=== PATIENT | female | born 1985 | race African-American/Black ===

== ENCOUNTER → 2017-03-07 | Outpatient (CLI) | payer MEDICAID ==
[2017-03-07 11:47] LABS: HEMATOCRIT 38.9 % (36.0-47.0); HEMOGLOBIN 13.3 g/dL (12.0-15.5); MEAN CORPUSCULAR HEMOGLOBIN 29.5 pg (27.0-33.4); MEAN CORPUSCULAR HGB CONC 34.2 g/dL (32.0-36.0); MEAN CORPUSCULAR VOLUME 86 fl (80-97); RED BLOOD COUNT 4.51 10^6/uL (3.72-5.28); RED CELL DISTRIBUTION WIDTH 14.4 % (11.5-14.0); WHITE BLOOD COUNT 5.7 10^3/uL (4.0-10.5)
[2017-03-07 12:23] LABS: ALANINE AMINOTRANSFERASE 31 U/L (9-52); ALBUMIN 4.5 g/dL (3.5-5.0); ALKALINE PHOSPHATASE 70 U/L (38-126); ANION GAP 9 (5-19); ASPARTATE AMINO TRANSFERASE 19 U/L (14-36); BILIRUBIN,DIRECT 0.4 mg/dL (0.0-0.4); BILIRUBIN,TOTAL 0.6 mg/dL (0.2-1.3); BLOOD UREA NITROGEN 12 mg/dL (7-20); CALCIUM 9.6 mg/dL (8.4-10.2); CARBON DIOXIDE 31 mmol/L (22-30); CHLORIDE 100 mmol/L (98-107); CHOLESTEROL 192.78 mg/dL (0-200); CREATININE RESULT 0.69 mg/dL (0.52-1.25); Direct HDL 60 mg/dL (>40); GLUCOSE 89 mg/dL (75-110); POTASSIUM 4.8 mmol/L (3.6-5.0); TOTAL PROTEIN 7.5 g/dL (6.3-8.2); TRIGLYCERIDES 63 mg/dL (<150)
[2017-03-07 12:33] LABS: DIRECT LDL 122 mg/dL (<100)
[2017-03-07 12:53] LABS: THYROID STIMULATING HORMONE 1.13 uIU/mL (0.47-4.68)
[2017-03-08 10:55] LABS: ESTRADIOL 49.5 pg/mL (.); FOLLICLE STIMULATING HORMONE 7.7 mIU/mL (.)
[2017-03-08 14:13] LABS: TESTOSTERONE FREE (DIRECT) 4.9 pg/mL (0.0-4.2)
== END ==
LOC: OD 10:12
PROVIDERS: ATTEND Physician Assistant
DX: K59.00 Constipation, unspecified (principal); L70.0 Acne vulgaris; R68.89 Other general symptoms and signs; Z11.3 Encounter for screening for infections with a predominantly sexual mode of transmission
CPT/HCPCS: 36415; 80053; 80061; 82670; 83001; 83002; 83036; 84402; 84403; 84439; 84443; 85027

== ENCOUNTER 2017-04-04 04:13 | Emergency (ER) | payer MEDICAID ==
[2017-04-04 04:28] VITALS: BP 124/73
--- NOTE | 2017-04-04 04:39 | ER Document Report ---
ED General - General Chief Complaint: Back Pain Stated Complaint: BACK PAIN Time Seen by Provider: 04/04/17 04:15 TRAVEL OUTSIDE OF THE [place] IN LAST 30 DAYS: No - HPI Patient complains to provider of: Right lower back pain Notes: Patient coming in for evaluation of right lower back pain ongoing for the last 3 days patient denies any strenuous activity patient states off to the right side from the midline of the back patient states she has some mild swelling at the site denies any treatment at home denies taking Tylenol Motrin using ice packs and massage therapy or warm packs. Denies any bowel bladder incontinence - Related Data Allergies/Adverse Reactions: No Known Allergies Allergy (Verified 04/04/17 04:15) Past Medical History - Social History Smoking Status: Unknown if Ever Smoked Family History: Reviewed & Not Pertinent Patient has suicidal ideation: No Patient has homicidal ideation: No Renal/ Medical History: Denies: Hx Peritoneal Dialysis Review of Systems - Review of Systems Constitutional: No symptoms reported EENT: No symptoms reported Cardiovascular: No symptoms reported Respiratory: No symptoms reported Gastrointestinal: No symptoms reported Genitourinary: No symptoms reported Female Genitourinary: No symptoms reported Musculoskeletal: Back pain Skin: No symptoms reported Hematologic/Lymphatic: No symptoms reported Neurological/Psychological: No symptoms reported Physical Exam - Vital signs Vitals: Temp Pulse Resp BP Pulse Ox 97.9 F 81 20 124/73 97 04/04/17 04:22 04/04/17 04:22 04/04/17 04:22 04/04/17 04:22 04/04/17 04:22 Interpretation: Normal - General General appearance: Appears well, Alert - HEENT Head: Normocephalic, Atraumatic Eyes: Normal Pupils: PERRL - Respiratory Respiratory status: No respiratory distress Chest status: Nontender Breath sounds: Normal Chest palpation: Normal - Cardiovascular Rhythm: Regular Heart sounds: Normal auscultation Murmur: No - Abdominal Inspection: Normal Distension: No distension Bowel sounds: Normal Tenderness: Nontender Organomegaly: No organomegaly - Back Back: Normal, Tender - Tenderness palpation of the right paraspinal muscles and lower back patient has multiple areas of tissue bogginess consistent with a muscle spasm. - Extremities General upper extremity: Normal inspection, Nontender, Normal color, Normal ROM , Normal temperature General lower extremity: Normal inspection, Nontender, Normal color, Normal ROM , Normal temperature, Normal weight bearing. No: Moe's sign - Neurological Neuro grossly intact: Yes Cognition: Normal Orientation: AAOx4 Bradley Coma Scale Eye Opening: Spontaneous [place] Coma Scale Verbal: Oriented Bradley Coma Scale Motor: Obeys Commands Bradley Coma Scale Total: 15 Speech: Normal Motor strength normal: LUE, RUE, LLE, RLE Sensory: Normal - Psychological Associated symptoms: Normal affect, Normal mood - Skin Skin Temperature: Warm Skin Moisture: Dry Skin Color: Normal Course - Re-evaluation Re-evalutation: 04/04/17 05:31 The patient presents with low back pain without signs of spinal cord compression , cauda equina syndrome, infection, aneurysm, or other serious etiology. The patient is neurologically intact. Given the extremely low risk of these diagnoses further testing and evaluation for these possibilities does not appear to be indicated at this time. The patient has been instructed to return if the symptoms worsen or change in any way. Examination consistent with muscle spasm. - Vital Signs Vital signs: Temp Pulse Resp BP Pulse Ox 97.9 F 81 20 124/73 97 04/04/17 04:22 04/04/17 04:22 04/04/17 04:22 04/04/17 04:22 04/04/17 04:22 Discharge - Discharge Clinical Impression: Back muscle spasm Condition: Good Disposition: HOME, SELF-CARE Instructions: Low Back Pain ([facility]), Ice Packs ([facility]), Warm Packs ([facility]), Muscle Relaxers ([facility]) Additional Instructions: Examinations consistent with a muscle spasm in her back. He may take Tylenol and Motrin for the pain he may also use ice packs and heat packs alternating between the 2 to help out with pain. I will give you a prescription for muscle relaxer please be careful as at these muscle relaxers will make you sleepy. Return to ER for any other issues Prescriptions: Cyclobenzaprine HCl [Flexeril 5 mg Tablet] 5 mg PO TID #20 tablet Forms: Return to Work
== END 2017-04-04 04:44 | disposition home or self-care (01) ==
LOC: ER 04:13
DX: M62.830 Muscle spasm of back (principal)
CPT/HCPCS: 99283

== ENCOUNTER 2018-02-14 13:30 | Emergency (ER) | payer OTHER, MEDICAID ==
[2018-02-14 13:37] VITALS: BP 139/88
[2018-02-14] MEDS ORDERED: ACETAMINOPHEN 325 MG TABLET PO ONE (14:18)
--- NOTE | 2018-02-14 14:30 | ER Document Report ---
HPI - HPI Patient complains to provider of: foot pain Onset: Other - february 03 Onset/Duration: Persistent Quality of pain: Achy Severity: Severe Pain Level: 4 Context: Patient presents to emergency department with complaints of pain numbness to the bottom of her right foot near her puncture site. She also reports this morning she woke up feeling nauseated and dizzy. She also reports she is very tired. Patient reports on February 03 she stepped on nail on it went through her shoe. She was evaluated by her primary care provider, [facility] in [place]. She reports they did clean the site put her on antibiotics. She reports since that time she has had pain to the site. She reported this morning she squeezed the area and clear drainage came out. Denies fever vomiting diarrhea. Associated Symptoms: None Exacerbated by: Walking Relieved by: Denies Similar symptoms previously: Yes Recently seen / treated by doctor: Yes - MUSCULOSKELETAL Musculoskeletal: REPORTS: Extremity pain Past Medical History - General Information source: Patient Last Menstrual Period: january 27 week - Social History Smoking Status: Unknown if Ever Smoked Cigarette use (# per day): No Frequency of alcohol use: None Drug Abuse: None Family History: Reviewed & Not Pertinent Patient has suicidal ideation: No Patient has homicidal ideation: No - Medical History Medical History: Negative Renal/ Medical History: Denies: Hx Peritoneal Dialysis Past Surgical History: Reports: Hx Section Vertical Provider Document - CONSTITUTIONAL Agree With Documented VS: Yes Exam Limitations: No Limitations General Appearance: WD/WN, No Apparent Distress - INFECTION CONTROL TRAVEL OUTSIDE OF THE [place] IN LAST 30 DAYS: No - HEENT HEENT: Atraumatic, Normocephalic - NECK Neck: Normal Inspection, Supple - RESPIRATORY Respiratory: No Respiratory Distress - CARDIOVASCULAR Cardiovascular: Regular Rate - MUSCULOSKELETAL/EXTREMETIES Musculoskeletal/Extremeties: MAEW, FROM, Tender - reports plantar area heel ttp , slightly firm, no erythema, no warmth, no discharge - NEURO Level of Consciousness: Awake, Alert, Appropriate Motor/Sensory: No Motor Deficit - DERM Integumentary: Warm, Dry Adult Front & Back Diagram: 1 - plantar right foot ttp, no erythema, no warmth, slight firmness noted, no discharge Course - Re-evaluation Re-evalutation: 02/14/18 15:04 Patient instructed on negative x-ray no foreign body appreciated or seen on xray. Patient instructed to follow-up with her primary care provider rest ice Tylenol or Motrin for pain. pt reports site feels much better since she was given tylenol here. - Vital Signs Vital signs: Temp Pulse Resp BP Pulse Ox 98.5 F 71 18 139/88 H 98 02/14/18 13:34 02/14/18 13:34 02/14/18 13:34 02/14/18 13:34 02/14/18 13:34 - Diagnostic Test Radiology reviewed: Image reviewed, Reports reviewed - EXAM DESCRIPTION: FOOT RIGHT COMPLETE COMPLETED DATE/TIME: 02/14/2018 2:47 pm REASON FOR STUDY: foreign body ? COMPARISON: None. NUMBER OF VIEWS: Three views. TECHNIQUE: AP, lateral and oblique radiographic images acquired of the right foot. LIMITATIONS: None. FINDINGS: MINERALIZATION: Normal. BONES: No acute fracture or dislocation. No worrisome bone lesions. JOINTS: No effusions. SOFT TISSUES: No soft tissue swelling. No foreign body. OTHER: No other significant finding. IMPRESSION: Normal study. No radiopaque foreign body is seen. Discharge - Discharge Clinical Impression: Right foot pain Condition: Stable Instructions: Acetaminophen Additional Instructions: *You have been evaluated for foot pain *the xray did not show a foreign body *Monitor the site for redness, swelling, increased pain *Follow up with your primary provider for recheck within one week *Follow up with orthopedics for evaluation within one week- call for an appointment *Take tylenol as indicated for pain *Return to ED for worsening condition, changes, needs, concerns Referrals: OSVALDO WINTER PA-C [Primary Care Provider] - Follow up in 3-5 days [facility] [Provider Group] - Follow up in 1 week (call for appointment after eval by your primary care provider)
--- NOTE | 2018-02-14 14:58 | RADIOLOGY REPORT (SQ) ---
EXAM DESCRIPTION: FOOT RIGHT COMPLETE COMPLETED DATE/TIME: 02/14/2018 2:47 pm REASON FOR STUDY: foreign body ? COMPARISON: None. NUMBER OF VIEWS: Three views. TECHNIQUE: AP, lateral and oblique radiographic images acquired of the right foot. LIMITATIONS: None. FINDINGS: MINERALIZATION: Normal. BONES: No acute fracture or dislocation. No worrisome bone lesions. JOINTS: No effusions. SOFT TISSUES: No soft tissue swelling. No foreign body. OTHER: No other significant finding. IMPRESSION: Normal study. No radiopaque foreign body is seen. TECHNICAL DOCUMENTATION: JOB ID: [id number] [employer]- All Rights Reserved Reading location - IP/workstation name: [email or web address]
== END 2018-02-14 15:29 | disposition home or self-care (01) ==
LOC: ER 13:30
DX: S91.331A Puncture wound without foreign body, right foot, initial encounter (principal); R20.0 Anesthesia of skin; M79.671 Pain in right foot; W45.0XXA Nail entering through skin, initial encounter
CPT/HCPCS: 99283

== ENCOUNTER 2019-05-17 09:16 | Emergency (ER) | payer MEDICAID ==
--- NOTE | 2019-05-17 09:34 | ER Document Report ---
ED Medical Screen (RME) - General Chief Complaint: Foot Pain Stated Complaint: FOOT PAIN Time Seen by Provider: 05/17/19 09:20 Primary Care Provider: OSVALDO WINTER PA-C [Primary Care Provider] - Follow up as needed Information source: Patient Notes: Patient presents complaining of right lower extremity pain for the past 1 to 2 weeks. Patient complains of right ankle pain for the past month. Patient denies any injury to the ankle. Patient states that she had a puncture wound to the right heel about 15 months ago and is concerned that she may have a retained foreign body. Patient is requesting MRI to further evaluate her foot. Patient reports feeling bubbles in her right lower extremity when she walks or when she is laying down. I have greeted and performed a rapid initial assessment of this patient. A comprehensive ED assessment and evaluation of the patient, analysis of test results and completion of the medical decision making process will be conducted by additional ED providers. TRAVEL OUTSIDE OF THE [place] IN LAST 30 DAYS: No - Related Data Allergies/Adverse Reactions: No Known Allergies Allergy (Verified 05/17/19 09:19) Past Medical History Renal/ Medical History: Denies: Hx Peritoneal Dialysis Past Surgical History: Reports: Hx Section Physical Exam - Vital signs Vitals: Temp Pulse Resp BP Pulse Ox 98.1 F 78 18 143/86 H 98 05/17/19 09:20 05/17/19 09:20 05/17/19 09:20 05/17/19 09:20 05/17/19 09:20 - General Notes: Right ankle tenderness, right lower leg tenderness with ambulation Course - Vital Signs Vital signs: Temp Pulse Resp BP Pulse Ox 98.1 F 78 18 143/86 H 98 05/17/19 09:20 05/17/19 09:20 05/17/19 09:20 05/17/19 09:20 05/17/19 09:20 Doctor's Discharge - Discharge Referrals: OSVALDO WINTER PA-C [Primary Care Provider] - Follow up as needed
--- NOTE | 2019-05-17 11:00 | RADIOLOGY REPORT (SQ) ---
EXAM DESCRIPTION: VENOUS UNILATERAL LOWER COMPLETED DATE/TIME: 05/17/2019 10:47 am REASON FOR STUDY: RLE pain COMPARISON: None. TECHNIQUE: Dynamic and static crawford scale and color images acquired of the right leg venous system. S elected spectral images acquired with additional compression and augmentation maneuvers. The contrala teral common femoral vein and saphenofemoral junction were also imaged. Images stored on PACS. LIMITATIONS: None. FINDINGS: COMMON FEMORAL: Normal phasicity, compression and augmentation. No visualized echogenic ma terial on crawford scale. No defects on color images. FEMORAL: Normal compression and augmentation. No visualized echogenic material on crawford scale. No defe cts on color images. POPLITEAL: Normal compression, augmentation. No visualized echogenic material on crawford scale. No defec ts on color images. CALF VESSELS: Normal compression, augmentation. No visualized echogenic material on crawford scale. No de fects on color images. GSV and SSV: Normal compression, augmentation. No visualized echogenic material on crawford scale. No def ects on color images. ANY DEEP VENOUS INSUFFICIENCY: Not evaluated. ANY EVIDENCE OF POPLITEAL CYST: No. OTHER: No other significant finding. CONTRALATERAL COMMON FEMORAL VEIN AND SAPHENOFEMORAL JUNCTION: Normal phasicity, compression and augmentation. No visualized echogenic material on crawford scale. No de fects on color images. IMPRESSION: NO EVIDENCE DVT OR SVT IN THE RIGHT LEG. TECHNICAL DOCUMENTATION: JOB ID: [id number] [employer]- All Rights Reserved Reading location - IP/workstation name: [email or web address]
[2019-05-17 11:04] VITALS: BP 146/82
--- NOTE | 2019-05-17 11:12 | ER Document Report ---
Entered by ALBINO GORDON SCRIBE 05/17/19 1019 Acting as scribe for:JACKIE CALDWELL DO ED Extremity Problem, Lower - General Chief Complaint: Foot Pain Stated Complaint: FOOT PAIN Time Seen by Provider: 05/17/19 09:20 Primary Care Provider: RUSSELL OLSON MD [ACTIVE STAFF] - Follow up as needed OSVALDO WINTER PA-C [NO LOCAL MD] - Follow up as needed Mode of Arrival: Ambulatory Information source: Patient Notes: This 33 year old female patient presents to the emergency department today with complaints of right foot and lower extremity pain. Patient states that she stepped on a nail in January of 2018 and she thinks that she now has an infection that needs to be drained despite no erythema or drainage. Patient states she feels "air bubbles" traveling up her leg in the medial calf area. TRAVEL OUTSIDE OF THE [place] IN LAST 30 DAYS: No - Related Data Allergies/Adverse Reactions: No Known Allergies Allergy (Verified 05/17/19 09:19) Past Medical History - General Information source: Patient - Social History Smoking Status: Former Smoker Cigarette use (# per day): No Frequency of alcohol use: None Drug Abuse: None Lives with: Family Family History: Reviewed & Not Pertinent Patient has suicidal ideation: No Patient has homicidal ideation: No Renal/ Medical History: Denies: Hx Peritoneal Dialysis Past Surgical History: Reports: Hx Section Review of Systems - Review of Systems Constitutional: No symptoms reported EENT: No symptoms reported Cardiovascular: No symptoms reported Respiratory: No symptoms reported Gastrointestinal: No symptoms reported Genitourinary: No symptoms reported Female Genitourinary: No symptoms reported Musculoskeletal: See HPI, Other - right foot pain Skin: No symptoms reported Hematologic/Lymphatic: No symptoms reported Neurological/Psychological: No symptoms reported -: Yes All other systems reviewed and negative Physical Exam - Vital signs Vitals: Temp Pulse Resp BP Pulse Ox 98.1 F 78 18 143/86 H 98 05/17/19 09:20 05/17/19 09:20 05/17/19 09:20 05/17/19 09:20 05/17/19 09:20 Interpretation: Normal - General General appearance: Appears well, Alert - HEENT Head: Normocephalic, Atraumatic Eyes: Normal Pupils: PERRL - Respiratory Respiratory status: No respiratory distress Chest status: Nontender Breath sounds: Normal Chest palpation: Normal - Cardiovascular Rhythm: Regular Heart sounds: Normal auscultation Murmur: No - Abdominal Inspection: Normal Distension: No distension Bowel sounds: Normal Tenderness: Nontender Organomegaly: No organomegaly - Back Back: Normal, Nontender - Extremities General upper extremity: Normal inspection, Nontender, Normal color, Normal ROM, Normal temperature General lower extremity: Normal inspection, Tender - Along posterior tibialis tendon on the right from attachment at medial base of foot to medial calf. No erythema or swelling. No fluctuance. Difficulty with heel raise on the right a s compared to the left side. Otherwise strength 5 out of 5 throughout., Normal color, Normal ROM, Normal temperature, Normal weight bearing. No: Moe's sign - Neurological Neuro grossly intact: Yes Cognition: Normal Orientation: AAOx4 [place] Coma Scale Eye Opening: Spontaneous Bradley Coma Scale Verbal: Oriented Bradley Coma Scale Motor: Obeys Commands Bradley Coma Scale Total: 15 Speech: Normal Motor strength normal: LUE, RUE, LLE, RLE Sensory: Normal - Psychological Associated symptoms: Normal affect, Normal mood - Skin Skin Temperature: Warm Skin Moisture: Dry Skin Color: Normal Course - Re-evaluation Re-evalutation: 05/17/19 10:45 No evidence for DVT Patient is a 33-year-old female who had an injury to her right foot back in January 2018. She was apparently supposed to follow-up on MRI but lost the prescription and did not have time to do it. Patient states that she has had progressive pain upper leg and it feels like "bubbles" states pain when walking. She is seen an orthopedic surgeon but has not followed up recently. No evidence for DVT. No evidence for foreign body. Foot has been x-rayed before. Symptoms are most consistent with a posterior tibialis tendinitis. Patient is instructed to use NSAIDs, ice her foot, and follow-up with orthopedics. She is to discuss physical therapy, orthotics, and possible steroid injections. Understands and agrees with this plan. Stable for discharge. - Vital Signs Vital signs: Temp Pulse Resp BP Pulse Ox 98.1 F 72 12 146/82 H 98 05/17/19 11:00 05/17/19 11:00 05/17/19 11:00 05/17/19 11:00 05/17/19 11:00 Discharge - Discharge Clinical Impression: Tibialis posterior tendinitis Qualifiers: Laterality: right Qualified Code(s): M76.821 - Posterior tibial tendinitis, right leg Condition: Stable Disposition: HOME, SELF-CARE Instructions: Ice & Elevation ([facility]), Tendonitis ([facility]) Additional Instructions: Please take ibuprofen or naproxen for pain. Please follow-up with your orthopedic doctor to inquire about an MRI. Would also recommend asking about orthotics, steroid injections and physical therapy. Forms: Return to Work Referrals: OSVALDO WINTER PA-C [NO LOCAL MD] - Follow up as needed RUSSELL OLSON MD [ACTIVE STAFF] - Follow up as needed I personally performed the services described in the documentation, reviewed and edited the documentation which was dictated to the scribe in my presence, and it accurately records my words and actions.
== END 2019-05-17 11:00 | disposition home or self-care (01) ==
LOC: ER 09:16
DX: M76.821 Posterior tibial tendinitis, right leg (principal); M79.671 Pain in right foot; Z87.891 Personal history of nicotine dependence
CPT/HCPCS: 93971; 99283